=== PATIENT | female | born 1990 | race Two or more races ===

== ENCOUNTER 2020-10-28 10:26 | Emergency (ER) | payer SELFPAY ==
[~2020-10-28] VITALS: Ht 157.5 cm; Wt 61.2 kg
[2020-10-28 11:41] VITALS: BP 104/77
[2020-10-28] MEDS ORDERED: LIDOCAINE 1% HCL (LOCAL ANESTH.) INJ 20ML MDV IJ ONE (11:45)
== END 2020-10-28 12:37 | disposition home or self-care (01) ==
LOC: ER 10:26
DX: S51.811A Laceration without foreign body of right forearm, initial encounter (principal); W25.XXXA Contact with sharp glass, initial encounter; Y93.89 Activity, other specified; Y92.89 Other specified places as the place of occurrence of the external cause; Y99.8 Other external cause status
CPT/HCPCS: 12002; 99283; J2001